=== PATIENT | female | born 1995 | race African-American/Black ===

== ENCOUNTER 2016-12-28 19:20 | Emergency (ER) | payer SELFPAY ==
[~2016-12-28] VITALS: Ht 165.1 cm; Wt 71.3 kg
[2016-12-28 19:25] VITALS: BP 124/60
== END 2016-12-28 22:30 | disposition left against medical advice (07) ==
LOC: ER 19:25
DX: Z53.21 Procedure and treatment not carried out due to patient leaving prior to being seen by health care provider (principal)